=== PATIENT | female | born 1980 | race Caucasian/White ===

== ENCOUNTER 2020-05-11 19:09 | Emergency (ER) | payer OTHER, SELFPAY ==
[2020-05-11 19:12] VITALS: BP 144/84; PULSE 82; RESP 14; TEMP 36.9; O2SAT 100
--- NOTE | 2020-05-11 19:24 | ED_ITS ---
HPI - Skin/Abscess/Foreign Bdy General Chief complaint: Wound/Laceration Stated complaint: Boil Time Seen by Provider: 05/11/20 19:24 Source: patient Mode of arrival: ambulatory Limitations: no limitations Related Data Home Medications Medication Instructions Recorded Confirmed empagliflozin [Jardiance] 10 mg PO DAILY 05/11/20 05/11/20 esomeprazole magnesium 40 mg PO DAILY 05/11/20 05/11/20 semaglutide [Ozempic] 1 mg SUBCUT DAILY 05/11/20 05/11/20 Allergies Allergy/AdvReac Type Severity Reaction Status Date / Time No Known Allergies Allergy Verified 05/11/20 19:23 [facility] Family History Family History (Updated 12/09/17 @ 00:00 by CONVUSER A) Mother Hypertension Family history of elevated blood lipids Family history of diabetes mellitus in first degree relative Family history of coronary artery disease, Onset Age: 50 Patient's mother is Mother Family history of coronary artery disease Hypertension Family history of type 2 diabetes mellitus Social History Social History Smoking status: Never smoker Second hand tobacco smoke exposure: No Alcohol intake: never Discharge Plan Discharge Prescriptions: No Action esomeprazole magnesium 40 mg capsule,delayed release(DR/EC) 40 mg PO DAILY RF: 0 Jardiance 10 mg tablet 10 mg PO DAILY RF: 0 Ozempic 1 mg/dose (2 mg/1.5 mL) pen injector 1 mg SUBCUT DAILY RF: 0
[2020-05-11] MEDS: SODIUM CHLORIDE 0.9% IV 1,000 ML 999 ML IV CONT (19:54)
[2020-05-11] MEDS: MORPHINE SULFATE 4 MG/ML INJ IV PUSH (19:55)
[2020-05-11] MEDS: DOXYCYCLINE HYCLATE 100 MG TABLET PO (19:55)
[2020-05-11] MEDS: ONDANSETRON INJ 4 MG/2 ML VIAL IV PUSH (19:55)
[2020-05-11] MEDS: LIDOCAINE HCL 1% LOCAL INJ 20 ML VIAL 10 ML INFILTRATE (19:56)
--- NOTE | 2020-05-11 19:56 | ED.FEMALEGU ---
HPI - Female Genitourinary General Chief complaint: Wound/Laceration Stated complaint: Boil Time Seen by Provider: 05/11/20 19:24 Source: patient Mode of arrival: ambulatory Limitations: no limitations History of Present Illness HPI Narrative: 40-year-old woman comes in today complaining of swelling and pain in her right labia that started 3 days ago. She states that she has had no drainage, fever, nausea, vomiting or abdominal pain. She has had no prior similar episodes. MD elicited complaint: genital swelling Pertinent past history: diabetes Onset (ago): day(s) (3) Location of symptoms: external genitalia Severity: moderate Quality of pain: sharp Consistency: constant Vaginal discharge: none Vaginal bleeding: none Exacerbating factors: palpation and other ( Ambulation) Relieving factors: none Treatment prior to arrival: sitz bath and NSAIDs Patient : No Related Data Home Medications Medication Instructions Recorded Confirmed empagliflozin [Jardiance] 10 mg PO DAILY 05/11/20 05/11/20 esomeprazole magnesium 40 mg PO DAILY 05/11/20 05/11/20 insulin degludec [Tresiba 44 unit SUBCUT DAILY 05/11/20 05/11/20 FlexTouch U-100] insulin lispro [Humalog KwikPen 4 unit SUBCUT AC 05/11/20 05/11/20 Insulin] losartan 50 mg PO DAILY 05/11/20 05/11/20 rosuvastatin [Crestor] 40 mg PO DAILY 05/11/20 05/11/20 semaglutide [Ozempic] 1 mg SUBCUT WEEKLY 05/11/20 05/11/20 Allergies Allergy/AdvReac Type Severity Reaction Status Date / Time No Known Allergies Allergy Verified 05/11/20 19:23 Review of Systems Constitutional: Constitutional: Denies chills and Denies fatigue Respiratory: Respiratory: Denies cough and Denies dyspnea Gastrointestinal: Gastrointestinal: Denies abdominal pain, Denies nausea and Denies vomiting Genitourinary: Genitourinary: Reports as per HPI, Denies hematuria, Denies nocturia, Reports genital lesions, Reports dysuria and Denies urinary incontinence Musculoskeletal: Musculoskeletal: Denies arthralgias and Denies joint swelling Integumentary/Breasts: Skin/Breast: Denies pruritus, Denies erythema and Denies rash Neurologic: Denies vertigo, Denies dizziness and Denies syncope Psychiatric: Psychiatric: Denies anxiety and Denies depression Endocrine: Endocrine: Denies polydipsia and Denies polyuria Hematologic/Lymphatic: Hematologic/Lymphatic: Denies easy bleeding and Denies easy bruising Allergic/Immunologic: Allergic/Immunologic: Denies lip swelling and Denies wheezing PMFSH Past Medical History Medical History Diabetes Dyslipidemia GERD (gastroesophageal reflux disease) Hypertension Surgical History Surgical History H/O tubal ligation Family History Family History (Updated 12/09/17 @ 00:00 by CONVUSER Cody) Mother Hypertension Family history of elevated blood lipids Family history of diabetes mellitus in first degree relative Family history of coronary artery disease, Onset Age: 50 Patient's mother is Mother Family history of coronary artery disease Hypertension Family history of type 2 diabetes mellitus Social History Social History Smoking status: Never smoker Second hand tobacco smoke exposure: No Alcohol intake: never Exam Const: General: healthy appearing and alert Orientation/consciousness: patient oriented x3 Limitations: no limitations Other: Moderate acute distress Eyes: Conjunctivae: conjunctivae normal Pupils: Equal, round and reactive pupils present EOM: EOMs intact bilaterally Resp: Effort & Inspection: normal respiratory effort and not labored Auscultation: clear to auscultation bilaterally, no rales, no rhonchi and no wheezes Cardio: Rate: regular rate Rhythm: regular rhythm Heart sounds: no murmurs : Speculum Exam - Vagina: normal vaginal
--- NOTE | 2020-05-11 20:39 | PC.NURSE ---
2000: RN ACCOMPANIED ERP INTO ROOM 2. RIGHT LABIA CLEANSED WITH HIBCLENS, LIDOCAINE INJECTED INTO AREA, SMALL INCISION MADE WITH 11 BLADE. PT HAD LARGE AMOUNT OF BLOOD AND PURULENT DRAINAGE FROM WOUND. CULTURE OBTAINED.
[2020-05-11 21:02] VITALS: BP 104/59; PULSE 77; RESP 14; O2SAT 100
== END 2020-05-11 21:03 | disposition home or self-care (01) ==
PROVIDERS: Emergency Provider Emergency Medicine; PCP Internal Medicine
DX: N75.1 Abscess of Bartholin's gland (principal); R30.0 Dysuria
CPT/HCPCS: 56420; 87070; 87205; 87491; 87591; 96361; 96374; 96375; 99283; 99284; A9270; J2270; J2405; J7030

== ENCOUNTER 2021-03-28 14:16 | Emergency (ER) | payer OTHER, SELFPAY ==
[2021-03-28 14:43] VITALS: BP 123/77; PULSE 80; RESP 16; TEMP 37.1; O2SAT 100
--- NOTE | 2021-03-28 14:52 | ED.SKABFB ---
HPI - Skin/Abscess/Foreign Bdy General Chief complaint: Skin/Abscess/Foreign Body Stated complaint: ABSCESS UNDER CHIN History of Present Illness HPI narrative: The patient, who has a prior history of diabetes on insulin, presents with skin eruption. 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 She was given Keflex by urgent care, no significant improvement [during the intervening time she had a orthopedic procedures of right carpal tunnel release,elbow ulnar transposition]. Symptoms are mild, worse with palpation; not associated with fever ,streaking, drainage/discharge --but there is some mild fluctuance, at 2 sites. And, she comments she had prior skin eruptions in the perineum. Patient advised due to the slightly complex presentation [on the neck,two to sites /loculations, etc], plan to do needle aspirations and not large incision. Patient agrees to needle incision and drainage; advised to follow-up with ENT if not improved. Related Data Home Medications Medication Instructions Recorded Confirmed empagliflozin [Jardiance] 25 mg PO DAILY 05/11/20 03/28/21 esomeprazole magnesium 40 mg PO DAILY 05/11/20 03/28/21 insulin degludec [Tresiba 44 unit SUBCUT DAILY 05/11/20 03/28/21 FlexTouch U-100] insulin lispro [Humalog KwikPen 4 unit SUBCUT AC 05/11/20 03/28/21 Insulin] losartan 50 mg PO DAILY 05/11/20 03/28/21 rosuvastatin [Crestor] 40 mg PO DAILY 05/11/20 03/28/21 semaglutide [Ozempic] 1 mg SUBCUT WEEKLY 05/11/20 03/28/21 Allergies Allergy/AdvReac Type Severity Reaction Status Date / Time No Known Allergies Allergy Verified 03/28/21 14:41 Review of Systems Review of Systems: Narrative: General/Constitutional: No weight loss,fever Eyes: N0: Redness,discharge Ears/Nose/Throat: No: Epistaxis,ear discharge Respiratory: Denies: Hemoptysis Gastrointestinal: No Vomiting, Bleeding-rectal Skin: No Lumps, eruption Neurologic: No Focal Weakness,Sz Hematologic: Denies: Petechiae/Purpura Psychiatric: No: Suicida ideationl All Other Systems: Reviewed and Negative [facility] Past Medical History Medical History (Updated 03/29/21 @ 00:02 by Background Daemon) Diabetes Dyslipidemia GERD (gastroesophageal reflux disease) Hypertension Surgical History Surgical History H/O tubal ligation Family History Family History (Updated 12/09/17 @ 00:00 by CONVUSER A) Mother Hypertension Family history of elevated blood lipids Family history of diabetes mellitus in first degree relative Family history of coronary artery disease, Onset Age: 50 Patient's mother is Mother Family history of coronary artery disease Hypertension Family history of type 2 diabetes mellitus Social History Social History Smoking status: Never smoker Second hand tobacco smoke exposure: No Alcohol intake: never Comments At time of signature, agree with nursing past medical, surgical, social and family history. There is no relevant family history pertinent to the presenting complaint Exam Narrative: Exam Narrative: General Appearance: Well appearing, Well nourished, No distress EYE: PERRLA EOMI Ears: External ear normal, Auditory canal normal Nose: Normal nose, Nares clear Mouth/Throat: Normal appearing, Normal lips Neck skin : 3 cm area of early abscess below hyoid with minimal surrounding redness; supple Respiratory: Airway patent, No respiratory distress Skin: Warm, Dry Neurological: A&O x3, CN II-X intact Psychiatric: Normal mood, Normal affect Course Vital Signs Vital signs: Vital Signs Temperature 98.8 F 03/28/21 14:43 Pulse Rate 80 03/28/21 14:43 Respiratory Rate 16 03/28/21 14:43 Blood Pressure 123/77 03/28/21 14:43 Pulse Oximetry 100 03/28/21 14:43 Temperature 98.8 F 03/28/21 14
[2021-03-28] MEDS: LIDOCAINE/PRILOCAINE CREAM 2.5-2.5% TUBE 1 EACH TOPICAL (15:06)
== END 2021-03-28 15:58 | disposition home or self-care (01) ==
PROVIDERS: Emergency Provider Emergency Medicine; PCP Internal Medicine
DX: L02.01 Cutaneous abscess of face (principal); E11.9 Type 2 diabetes mellitus without complications; E78.5 Hyperlipidemia, unspecified; K21.9 Gastro-esophageal reflux disease without esophagitis; I10 Essential (primary) hypertension
CPT/HCPCS: 10160; 87070; 87147; 87186; 87205; 99213; G0463